=== PATIENT | male | born 1975 | race Two or more races ===

== ENCOUNTER 2018-12-18 21:01 | Emergency (ER) | payer SELFPAY ==
[~2018-12-18] VITALS: Ht 175.3 cm; Wt 86.2 kg
--- NOTE | 2018-12-18 21:15 | NUR ---
at bedside for MSE
--- NOTE | 2018-12-18 21:39 | NUR ---
[facility]
--- NOTE | 2018-12-18 22:00 | NUR ---
Pt. back from Rad., female valet cashier at bedside, NAD
--- NOTE | 2018-12-18 22:12 | NUR ---
Patient discharged to home in stable conditon. Written and verbal after care instructions given. Patient verbalizes understanding of instructions. Pt. d/c w/ prescription per MD order, d/c papers signed, all belongings w/ pt., ID band removed, ambulated off unit w/ steady gait accompanied by female tablet making machine operator, KARIS
== END 2018-12-18 22:14 | disposition home or self-care (01) ==
LOC: ER 21:03
DX: M25.512 Pain in left shoulder (principal); M54.9 Dorsalgia, unspecified; M25.531 Pain in right wrist; M25.532 Pain in left wrist; Z88.6 Allergy status to analgesic agent; V43.52XA Car driver injured in collision with other type car in traffic accident, initial encounter; Y93.89 Activity, other specified; Y92.89 Other specified places as the place of occurrence of the external cause; Y99.8 Other external cause status
CPT/HCPCS: 72072; 73030; 73110; A4663